=== PATIENT | female | born 1965 | race Caucasian/White ===

== ENCOUNTER 2023-02-27 08:34 | Inpatient (IN) | payer MEDICARE, SELFPAY ==
[2023-02-27] VITALS (10 sets, daily range): BP systolic 130–165; BP diastolic 58–70; PULSE 86–92; RESP 16–24; TEMP 36–36.9; O2SAT 91–95; BMI 36.5; BMI 35.4
[2023-02-27 09:41] LABS: Absolute Neutrophil Count 6.5 X10^3/uL (2.0-7.7); Basophil# 0.05 X10^3/uL; Basophil% 0.5 % (0-1); Eosinophil# 0.28 X10^3/uL; Hematocrit 35.9 % (37-47); Hemoglobin 10.6 g/dL (12.0-15.0); Lymphocyte % 19.5 % (19-41); Mean Corp Hgb Conc 29.5 g/dL (32-36); Mean Corpuscular Hgb 23.2 pg (27.0-32.0); Mean Corpuscular Volume 78.6 fL (81-99); Mean Platelet Vol. 8.8 fl (6.2-12.0); Monocyte# 0.58 X10^3/uL; Monocyte% 6.3 % (0-10); NRBC Flagged by Analyzer 0 % (0-5); Neutrophil # 6.46 X10^3/uL (2.7-7.7); Neutrophil % 69.9 % (47-70); Platelet Count 200 K/mm3 (150-450); RBC Distribution Width CV 18.2 % (11.6-14.6); RBC Distribution Width SD 51.6 fl (35.1-43.9); Red Blood Count 4.57 M/mm3 (4.2-5.4); White Blood Count 9.2 K/mm3 (4.4-11.0)
--- NOTE | 2023-02-27 09:45 | EKG12_ITS ---
Test Reason : SOB Blood Pressure : / mmHG Vent. Rate : 082 BPM Atrial Rate : 082 BPM P-R Int : 244 ms QRS Dur : 116 ms QT Int : 386 ms P-R-T Axes : 020 -53 067 degrees QTc Int : 450 ms Sinus rhythm with 1st degree A-V block Left axis deviation Left ventricular hypertrophy with QRS widening Anteroseptal infarct , age undetermined Abnormal ECG Confirmed by ARELY RAZO, CASSIE ([id number]), photo editor KAYLA MORSE ([id number]) on 02/28/2023 8:52:01 AM Referred By: SANDEEP Confirmed By:CASSIE MCGEE MD
[2023-02-27 09:51] LABS: Anion Gap 5 (5-15); BUN 34 mg/dL (7-18); BUN/Creat Ratio 27.4 RATIO (10-20); Calcium,Total 8.8 mg/dL (8.5-10.1); Chloride 110 mmol/L (98-107); Creatinine, Serum 1.24 mg/dL (0.55-1.02); EST Glomerular Filtration Rate 47 mL/min (>60); Est Glom Filt Rate - Afr Amer 57 mL/min (>60); Estimated Creatinine Clearance 40.41 ml/min; Glucose 142 mg/dL (74-106); Potassium 4.6 mmol/L (3.5-5.1); Sodium Level 138 mmol/L (136-145)
--- NOTE | 2023-02-27 10:07 | RAD_ITS ---
STUDY: X-RAY CHEST REASON FOR EXAM: Female, 57 years old. SOB TECHNIQUE: Single AP portable view of the chest. COMPARISON: None. FINDINGS: EKG electrodes are seen. Vascular congestion and CHF. Blunting of both cosmetic angles. There is borderline cardiomegaly. Normal mediastinum and steffanie. Normal visualized pulmonary arteries. Normal visualized aortic arch and descending thoracic aorta. There are diffuse degenerative changes of the visualized thoracic spine. Normal visualized ribs, clavicles, and shoulders. There is no demonstrated abnormality of the visualized soft tissue structures of the upper abdomen. RAD/Chest 1 View (Portable) IMPRESSION: Vascular congestion and CHF. Electronically Signed: Gomez Cross MD at 10:44 EDT ,
--- NOTE | 2023-02-27 10:42 | ED.VIS.DYS ---
HPI History of Present Illness Chief Complaint: Shortness of Breath Narrative Narrative: 57-year-old female presenting with shortness of breath. He states that started about a week and a half ago and has been progressively worse. She reports a history of COPD. She states he was last on antibiotics and steroids. No recent hospitalizations. She has some mild right-sided chest pain which is intermittent and does not radiate. She has not a fever but does feel like she has chills. Patient does report a cough. No production of sputum. Dyspnea is worse with exertion. [facility] Medical History Benign colon polyp COPD (chronic obstructive pulmonary disease) Diabetes Allergy/AdvReac Type Severity Reaction Status Date / Time tramadol Allergy Itching Verified 02/27/23 08:35 Family History (Updated 02/27/23 @ 12:[address] Santos Garcia MD) Other Heart disease Surgical History History of History of hernia repair Social History Smoking Status: Current every day smoker tobacco type: cigarettes ROS ROS ED Constitutional Constitutional ED: Reports chills; Denies fever(s) or sweats Eyes Eyes: Denies blurry vision or change in vision ENT ENT ED: Denies ear pain or sore throat Cardiovascular Cardiovascular: Denies chest pain, palpitations or racing heartbeat Respiratory/Chest Respiratory/Chest: Reports cough, dyspnea and dyspnea on exertion; Denies sputum Gastrointestinal Gastrointestinal: Denies abdominal pain, constipation, diarrhea, nausea or vomiting Genitourinary Genitourinary ED: Denies dysuria, hematuria or urinary frequency Musculoskeletal Musculoskeletal: Denies arthralgias, myalgias or neck pain Integumentary Denies abscess, Abrasions or rash Neurologic Neurologic: Denies headache(s), paresthesias or weakness Psychiatric Psychiatric: Denies anxiety, depression, suicidal ideation or suicidal thoughts Endocrine Endocrinology: Denies polydipsia or polyuria EXAM Physical Exam Const Vital Signs: 02/27/23 08:36 02/27/23 09:25 02/27/23 09:25 Temperature 96.8 F L Temperature Source Temporal Pulse Rate 92 Respiratory Rate 16 24 H Respiratory Effort Respiratory Depth Respiratory Pattern Blood Pressure 165/58 H Blood Pressure Mean 93 Pulse Ox 93 91 91 Oxygen Delivery Method Nasal Cannula Nasal Cannula Nasal Cannula Oxygen Flow Rate (L/min) 3 3 3 02/27/23 09:26 02/27/23 10:21 02/27/23 11:13 Temperature Temperature Source Pulse Rate 86 Respiratory Rate 24 H Respiratory Effort Short of Breath Respiratory Depth Shallow Respiratory Pattern Tachypnea Blood Pressure 142/70 H Blood Pressure Mean 94 Pulse Ox 94 92 Oxygen Delivery Method Nasal Cannula Nasal Cannula Nasal Cannula Oxygen Flow Rate (L/min) 3 4 4 02/27/23 11:15 Temperature Temperature Source Pulse Rate 89 Respiratory Rate 17 Respiratory Effort Respiratory Depth Respiratory Pattern Normal Blood Pressure Blood Pressure Mean Pulse Ox Oxygen Delivery Method Oxygen Flow Rate (L/min) Positive well nourished General Appearance ED: NAD; Negative for pallor HEENT Reports dry mucous membranes Mouth ED: Yes dry mucous membranes Mouth: dry mucous membranes Eyes PERRL and EOMs intact bilaterally Neck no lymphadenopathy and supple Resp Resp Narrative: Slightly tachypneic. Patient speaking in full sentences. Noted to be on 5 L of oxygen. No accessory muscle use. Auscultation: wheezes expiratory wheezes Cardio regular rate and regular rhythm GI non-tender Neuro oriented x3 and CN's II-XII intact bilaterally Sensorium / Orientation: alert Motor Exam: strength 5/5 throughout Psych mental status grossly normal Skin no wounds General Skin Exam: Negative for jaundice or pallor MDM MDM MDM Narrative Medical decision making narrative: 57-year-old for ED presenting with shortness of breath. She states that she been this way for about a week and a half. Worsening over the last few days. Patient noted to be requiring liters nasal cannula when usually she uses 3. Patient is wheezing on exam she is given breathing treatments Solu-Medrol. Differential includes COPD exacerbation, pneumonia, viral syndrome, ACS, CHF, PE. CBC to assess white blood cell count, hemoglobin, platelets, differential. BMP to assess renal function, electrolytes. D-dimer presents for PE. LFTs to assess for liver abnormality. CBC shows a hemoglobin of 10.6 with no comparison. Patient denies black or bloody stools. BMP shows normal electrolytes. Creatinine is 1.24, BUN 34, GFR 47. No comparison lab work. BNP is negative. The patient's chest x-ray does look like pulmonary vascular congestion although she has a normal BNP and she is wheezing on exam I suspect she has a COPD exacerbation. She is hypoxic at 87% on reevaluation on 5 L just sitting in the bed. Will need to be admitted. I spoke with the hospitalist for admission. Impression: 1. COPD exacerbation 2. Hypoxic respiratory failure Lab Data Attestation: I reviewed the patient's lab results. Labs: Laboratory Results - last 24 hr 02/27/23 02/27/23 02/27/23 09:30 09:30 09:30 WBC 9.2 RBC 4.57 Hgb 10.6 L Hct 35.9 L MCV 78.6 L MCH 23.2 L MCHC 29.5 L RDW Std Deviation 51.6 H RDW Coeff of Alejandra 18.2 H Plt Count 200 MPV 8.8 Immature Gran % (Auto) 0.800 Neut % (Auto) 69.9 Lymph % (Auto) 19.5 [place] % (Auto) 6.3 Eos % (Auto) 3.0 Baso % (Auto) 0.5 Absolute Neuts (auto) 6.5 Absolute Lymphs (auto) 1.80 Nucleated RBC % 0 D-Dimer Quant (PE/DVT) < 0.27 L Sodium 138 Potassium 4.6 Chloride 110 H Carbon Dioxide 23.0 Anion Gap 5 BUN 34 H Creatinine 1.24 H Estim Creat Clear Calc 40.41 Est GFR (MDRD) Af Amer 57 L Est GFR (MDRD) Non-Af 47 L BUN/Creatinine Ratio 27.4 H Glucose 142 H Calcium 8.8 Total Bilirubin Direct Bilirubin AST ALT Alkaline Phosphatase Troponin I High Sens B-Natriuretic Peptide Total Protein Albumin Globulin 02/27/23 02/27/23 09:30 09:30 WBC RBC Hgb Hct MCV MCH MCHC RDW Std Deviation RDW Coeff of Alejandra Plt Count MPV Immature Gran % (Auto) Neut % (Auto) Lymph % (Auto) [place] % (Auto) Eos % (Auto) Baso % (Auto) Absolute Neuts (auto) Absolute Lymphs (auto) Nucleated RBC % D-Dimer Quant (PE/DVT) Sodium Potassium Chloride Carbon Dioxide Anion Gap BUN Creatinine Estim Creat Clear Calc Est GFR (MDRD) Af Amer Est GFR (MDRD) Non-Af BUN/Creatinine Ratio Glucose Calcium Total Bilirubin 0.40 Direct Bilirubin 0.10 AST 8 L ALT 13 Alkaline Phosphatase 95 Troponin I High Sens 8 B-Natriuretic Peptide 31.6 Total Protein 7.3 Albumin 3.1 L Globulin 4.2 Radiography Diagnostic Testing: Clinical Impression(s) from Imaging Studies Chest X-Ray 02/27/23 10:07 IMPRESSION: Vascular congestion and CHF. Electronically Signed: Gomez Cross MD at 10:44 EDT Reading Location ID and State: [facility] / [place] , Service support , Discharge Plan Triage Chief Complaint: Shortness of Breath ED Provider: Lj Patel Dx/Rx/DC Orders Primary Care Provider: Angelina Nieves NP Referrals: Angelina Nieves NP, [employer] DESIGNER[employer] [Primary Care Provider] -
[2023-02-27 10:56] LABS: D-Dimer Quantitative (DVT/PE) < 0.27 FEU/ug/m (0.27-0.49)
[2023-02-27 11:02] LABS: AST(SGOT) 8 U/L (15-37); Alanine Aminotransfer ALT/SGPT 13 U/L (13-56); Albumin, Serum 3.1 g/dL (3.2-5.0); Alkaline Phosphatase 95 U/L (45-117); Globulin 4.2 g/dL (2.2-4.2); Protein, Total 7.3 g/dL (6.4-8.2); Troponin-I HS 8 pg/mL (3.0-54.0)
[2023-02-27 11:08] LABS: BNP,B-Type NATRIURETIC PEPTIDE 31.6 pg/mL (0-100)
[2023-02-27] MEDS: Albuterol 2.5 MG/3 ML VIAL.NEB. INHALATION (11:12)
[2023-02-27] MEDS: Ipratropium/Albuterol Sulfate 3 ML AMPUL.NEB INHALATION ×2 (11:12→19:39)
[2023-02-27] MEDS: MethylPREDNISolone 125 MG/2 ML Vial IV (11:12)
--- NOTE | 2023-02-27 12:47 | HP.PCM.HOS_ITS ---
HPI - General General Date of Admission: 02/27/23 HPI Narrative HAYDEN RANDLE, is a 57 F who presents to the hospital with a week and a half worth of shortness of breath. She is chronically hypoxic requiring 3 L of oxygen due to COPD. She has noticed over the last month that she has had difficulty lying flat and she feels more short of breath when she tries to. 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 She denies any recent illnesses, she denies any fevers or chills and no one sick at home. She does have a cough though it is only productive of clear sputum. [facility] Medical History Benign colon polyp COPD (chronic obstructive pulmonary disease) Diabetes Home Medications albuterol sulfate 90 mcg/actuation aerosol inhaler (Ventolin HFA) 2 inh inhalation Q4H PRN SOB 02/27/23 [History Last Taken 02/26/23] amlodipine 2.5 mg tablet 2.5 mg PO DAILY BP 02/27/23 [History Last Taken 02/27/23] celecoxib 100 mg capsule 100 mg PO BID PRN Pain 02/27/23 [History Last Taken 02/27/23] empagliflozin 25 mg tablet (Jardiance) 25 mg PO DAILY DM 02/27/23 [History Last Taken 02/27/23] escitalopram oxalate 10 mg tablet 10 mg PO DAILY DEPRESSION 02/27/23 [History Last Taken 02/27/23] ezetimibe 10 mg tablet 10 mg PO DAILY CHOLESTEROL 02/27/23 [History Last Taken 02/27/23] furosemide 40 mg tablet 40 mg PO DAILY FLUID 02/27/23 [History Last Taken 02/26/23] glimepiride 1 mg tablet 1 mg PO DAILY DM 02/27/23 [History Last Taken 02/27/23] hydrocodone-acetaminophen 5-325mg 5mg-325mg 1 tab PO DAILY PRN Severe Pain (Scale Score 7-10) 02/27/23 [History Last Taken 02/26/23] insulin NPH isoph U-100 human 100 unit/mL subcutaneous suspension (Novolin N NPH U-100 Insulin isophane) 20 unit subcut DAILY DM 02/27/23 [History Last Taken 02/26/23] insulin detemir U-100 100 unit/mL subcutaneous solution (Levemir U-100 Insulin) 20 unit subcut QHS DM 02/27/23 [History Last Taken 02/26/23] potassium chloride 20 mEq tablet,extended release 20 meq PO DAILY SUPPLEMENT 02/27/23 [History Last Taken 02/27/23] pregabalin 100 mg capsule 100 mg PO TID PRN Pain 02/27/23 [History Last Taken 02/27/23] umeclidinium 62.5 mcg/actuation blister powder for inhalation (Incruse Ellipta) 1 inh inhalation DAILY COPD 02/27/23 [History Last Taken 02/27/23] Allergy/AdvReac Type Severity Reaction Status Date / Time tramadol Allergy Itching Verified 02/27/23 08:35 Family History (Updated 02/27/23 @ 14:[address] Santos Garcia MD) Other COPD (chronic obstructive pulmonary disease) Cancer Surgical History History of History of hernia repair Social History Smoking Status: Current every day smoker tobacco type: cigarettes ROS Constitutional Constitutional: Denies chills, fatigue, fever(s) or malaise Eyes Eyes: Denies blurry vision ENT HEENT: Denies headache(s) or nasal discharge Cardiovascular Cardiovascular: Reports orthopnea; Denies chest pain, dyspnea on exertion or syncope Respiratory/Chest Respiratory/Chest: Reports shortness of breath at rest; Denies cough or shortness of breath with exertion Gastrointestinal Gastrointestinal: Denies constipation, diarrhea, nausea or vomiting Genitourinary Genitourinary: Denies dysuria Neurologic Neurologic: Denies focal weakness, numbness or tremor(s) Psychiatric Psychiatric: Denies anxiety or depression Vital Signs Vital Signs Vital Signs: 02/27/23 08:36 02/27/23 09:25 02/27/23 09:25 Temperature 96.8 F L Temperature Source Temporal Pulse Rate 92 Respiratory Rate 16 24 H Respiratory Effort Respiratory Depth Respiratory Pattern Blood Pressure 165/58 H Blood Pressure Mean 93 Pulse Ox 93 91 91 Oxygen Delivery Method Nasal Cannula Nasal Cannula Nasal Cannula Oxygen Flow Rate (L/min) 3 3 3 02/27/23 09:26 02/27/23 10:21 02/27/23 11:13 Temperature Temperature Source Pulse Rate 86 Respiratory Rate 24 H Respiratory Effort Short of Breath Respiratory Depth Shallow Respiratory Pattern Tachypnea Blood Pressure 142/70 H Blood Pressure Mean 94 Pulse Ox 94 92 Oxygen Delivery Method Nasal Cannula Nasal Cannula Nasal Cannula Oxygen Flow Rate (L/min) 3 4 4 02/27/23 11:15 Temperature Temperature Source Pulse Rate 89 Respiratory Rate 17 Respiratory Effort Respiratory Depth Respiratory Pattern Normal Blood Pressure Blood Pressure Mean Pulse Ox Oxygen Delivery Method Oxygen Flow Rate (L/min) Weight Weight: 206 lb Body Mass Index (BMI) 36.5 Physical Exam Narrative General: Alert, Oriented x3, Cooperative, mild respiratory distress HEENT: Atraumatic, PERRLA, EOMI, Normocephalic Oral: Moist Mucosa Neck: Supple, No JVD Lungs: Diminished, Normal air movement, No rhonchi, wheeze, No rales, tachypnea Cardiovascular: Regular rate, Regular Rhythm, Normal S1, Normal S2, No murmurs Abdomen: Soft, Non Tender, Non-Distended, No Hepato-splenomegaly Extremities: No edema, Capillary Refill Less than 3 Seconds Skin: No rashes, No breakdown Musculoskeletal: No Tenderness to Palpation of Joints or Extremities Neurological: Motor Exam 5/5 strength throughout, Sensory exam intact to light touch and pain Psych/Mental Status: Normal Affect, Appropriate Results Lab / Micro Data Result Diagrams: 02/27/23 09:30 02/27/23 09:30 Labs: Laboratory Results - last 24 hr 02/27/23 09:30: WBC 9.2, RBC 4.57, Hgb 10.6 L, Hct 35.9 L, MCV 78.6 L, MCH 23.2 L, MCHC 29.5 L, RDW Std Deviation 51.6 H, RDW Coeff of Alejandra 18.2 H, Plt Count 200, MPV 8.8, Immature Gran % (Auto) 0.800, Neut % (Auto) 69.9, Lymph % (Auto) 19.5, [place] % (Auto) 6.3, Eos % (Auto) 3.0, Baso % (Auto) 0.5, Absolute Neuts (auto) 6.5, Absolute Lymphs (auto) 1.80, Nucleated RBC % 0 02/27/23 09:30: Sodium 138, Potassium 4.6, Chloride 110 H, Carbon Dioxide 23.0, Anion Gap 5, BUN 34 H, Creatinine 1.24 H, Estim Creat Clear Calc 40.41, Est GFR (MDRD) Af Amer 57 L, Est GFR (MDRD) Non-Af 47 L, BUN/Creatinine Ratio 27.4 H, Glucose 142 H, Calcium 8.8 02/27/23 09:30: D-Dimer Quant (PE/DVT) < 0.27 L 02/27/23 09:30: Total Bilirubin 0.40, Direct Bilirubin 0.10, AST 8 L, ALT 13, Alkaline Phosphatase 95, Troponin I High Sens 8, Total Protein 7.3, Albumin 3.1 L, Globulin 4.2 02/27/23 09:30: B-Natriuretic Peptide 31.6 Micro: Microbiology 02/27/23 09:30 Nasal Secretion SARS-CoV-2 Antigen (Rapid) - Final Radiology Impression Chest X-Ray 02/27/23 10:07 IMPRESSION: Vascular congestion and CHF. Electronically Signed: Gomez Cross MD at 10:44 EDT , Assessment & Plan Assessment/Plan (1) Acute and chronic respiratory failure with hypoxia: (2) COPD exacerbation: PLAN: Plan 1. Acute on chronic hypoxic respiratory failure secondary to COPD exacerbation ? We will continue with steroids and breathing treatments ? Her BNP is normal in the setting of an elevated creatinine however she does have signs and symptoms of heart failure so we will obtain an echo to rule this out ? We will recommend outpatient follow-up with a tag machine operator when she is ready to discharge ? We will try to attempt a sputum culture 2. HTN/HLD ? Blood pressure stable, will continue with her home medications including Norvasc ? Continue with Lasix and will obtain an echo ? Continue with Zetia 3. DM2 ? We will hold her home medications ? We will place her on sliding scale insulin with Accu-Cheks ACHS ? Continue with long-acting insulin ? We will make adjustments as necessary DVT: Heparin 75 minutes was spent on direct patient care as well as chart review and collaboration with colleagues Charges/Coding Visit Charges Inpatient E&M: 53917 Init Hosp L3
[2023-02-27] MEDS: Insulin Lispro 100 UNIT/ML INSULN.PEN SC ×2 (16:37→21:50)
[2023-02-27] MEDS: Methylprednisolone Sod Succ 40 MG/ML VIAL IV ×2 (16:37→21:47)
[2023-02-27] MEDS: Heparin Injection (Vial) 5,000 UNIT/ML VIAL 5000 UNIT SC ×2 (16:37→21:47)
[2023-02-27 16:50] LABS: Bedside Glucose 270 mg/dL (74-106)
[2023-02-27] MEDS: Celecoxib 100 MG Capsule PO (20:26)
[2023-02-27] MEDS: Insulin Glargine-YFGN 100 UNIT/ML Pen 20 UNIT SC (21:49)
[2023-02-27 22:15] LABS: Bedside Glucose 360 mg/dL (74-106)
[2023-02-28 03:00] VITALS: BP 127/69; PULSE 81; RESP 18; TEMP 36.6; O2SAT 97
[2023-02-28 05:14] LABS: Absolute Neutrophil Count 7.2 X10^3/uL (2.0-7.7); Basophil# 0.02 X10^3/uL; Basophil% 0.2 % (0-1); Hematocrit 38.4 % (37-47); Hemoglobin 11.1 g/dL (12.0-15.0); Lymphocyte % 8.5 % (19-41); Mean Corp Hgb Conc 28.9 g/dL (32-36); Mean Corpuscular Hgb 22.7 pg (27.0-32.0); Mean Corpuscular Volume 78.7 fL (81-99); Mean Platelet Vol. 9.2 fl (6.2-12.0); Monocyte# 0.23 X10^3/uL; Monocyte% 2.8 % (0-10); NRBC Flagged by Analyzer 0 % (0-5); Neutrophil # 7.18 X10^3/uL (2.7-7.7); Neutrophil % 86.7 % (47-70); Platelet Count 222 K/mm3 (150-450); RBC Distribution Width SD 50.7 fl (35.1-43.9); Red Blood Count 4.88 M/mm3 (4.2-5.4); White Blood Count 8.3 K/mm3 (4.4-11.0)
[2023-02-28 05:39] LABS: Anion Gap 7 (5-15); BUN 45 mg/dL (7-18); Calcium,Total 9.5 mg/dL (8.5-10.1); Chloride 106 mmol/L (98-107); Creatinine, Serum 1.25 mg/dL (0.55-1.02); EST Glomerular Filtration Rate 47 mL/min (>60); Est Glom Filt Rate - Afr Amer 56 mL/min (>60); Estimated Creatinine Clearance 40.09 ml/min; Glucose 297 mg/dL (74-106); Potassium 5.4 mmol/L (3.5-5.1); Sodium Level 136 mmol/L (136-145)
[2023-02-28] MEDS: Insulin Lispro 100 UNIT/ML INSULN.PEN SC (05:58)
[2023-02-28] MEDS: Methylprednisolone Sod Succ 40 MG/ML VIAL IV (06:01)
[2023-02-28] MEDS: Heparin Injection (Vial) 5,000 UNIT/ML VIAL 5000 UNIT SC (06:01)
[2023-02-28 06:04] VITALS: PULSE 80; RESP 18; O2SAT 97
[2023-02-28 06:46] LABS: Bedside Glucose 264 mg/dL (74-106)
[2023-02-28 06:58] VITALS: PULSE 81; RESP 19; O2SAT 97
[2023-02-28] MEDS: Ipratropium/Albuterol Sulfate 3 ML AMPUL.NEB INHALATION (06:58)
[2023-02-28 07:06] VITALS: O2SAT 91; O2SAT 96
--- NOTE | 2023-02-28 08:41 | NURSING ---
Patient IV removed and left AMA. Explained risks of AMA pt states she is not staying any longer does not want a echo that is ordered. Made3 Dr. Garcia is aware.
--- NOTE | 2023-02-28 09:04 | PCM.DC.SUM ---
Providers Date of Admission: 02/27/23 Primary Care Physician: ARMINDA ManciaC Reason For Visit: COPD EXACERBATION Diagnosis Discharge Diagnosis (1) Acute and chronic respiratory failure with hypoxia: Status: Chronic Code(s): J96.21 - Acute and chronic respiratory failure with hypoxia (2) COPD exacerbation: Status: Chronic Code(s): J44.1 - Chronic obstructive pulmonary disease with (acute) exacerbation Medications at Discharge Home Medications albuterol sulfate 90 mcg/actuation aerosol inhaler (Ventolin HFA) 2 inh inhalation Q4H PRN SOB 02/27/23 amlodipine 2.5 mg tablet 2.5 mg PO DAILY BP 02/27/23 celecoxib 100 mg capsule 100 mg PO BID PRN Pain 02/27/23 empagliflozin 25 mg tablet (Jardiance) 25 mg PO DAILY DM 02/27/23 escitalopram oxalate 10 mg tablet 10 mg PO DAILY DEPRESSION 02/27/23 ezetimibe 10 mg tablet 10 mg PO DAILY CHOLESTEROL 02/27/23 furosemide 40 mg tablet 40 mg PO DAILY FLUID 02/27/23 glimepiride 1 mg tablet 1 mg PO DAILY DM 02/27/23 hydrocodone-acetaminophen 5-325mg 5mg-325mg 1 tab PO DAILY PRN Severe Pain (Scale Score 7-10) 02/27/23 insulin NPH isoph U-100 human 100 unit/mL subcutaneous suspension (Novolin N NPH U-100 Insulin isophane) 20 unit subcut DAILY DM 02/27/23 insulin detemir U-100 100 unit/mL subcutaneous solution (Levemir U-100 Insulin) 20 unit subcut QHS DM 02/27/23 potassium chloride 20 mEq tablet,extended release 20 meq PO DAILY SUPPLEMENT 02/27/23 pregabalin 100 mg capsule 100 mg PO TID PRN Pain 02/27/23 umeclidinium 62.5 mcg/actuation blister powder for inhalation (Incruse Ellipta) 1 inh inhalation DAILY COPD 02/27/23 prednisone 20 mg tablet 40 mg PO DAILY 7 days #14 tabs 02/28/23 Hospital Course Operations None Procedures None Summary of Care Provided Minutes Spent on Discharge: 36 Hospital Course: Per HPI: HAYDEN RANDLE, is a 57 F who presents to the hospital with a week and a half worth of shortness of breath.? She is chronically hypoxic requiring 3 L of oxygen due to COPD.? She has noticed over the last month that she has had difficulty lying flat and she feels more short of breath when she tries to.? She does not have a director transition but has been on oxygen for her COPD from his last 10 years.? She denies any recent illnesses, she denies any fevers or chills and no one sick at home.? She does have a cough though it is only productive of clear sputum. Hospital Course: 1.? Acute on chronic hypoxic respiratory failure secondary to COPD exacerbation/tobacco abuse ? We will continue with steroids and breathing treatments ? She does continue to smoke about a pack and 1.5 pack per day discussed cessation ? Her BNP is normal in the setting of an elevated creatinine however she does have signs and symptoms of heart failure so we will obtain an echo to rule this out ? We will recommend outpatient follow-up with a director transition when she is ready to discharge ? We will try to attempt a sputum culture ? She refused to stay, head and neck since conversation with her about why I want to get the echo but she demanded to leave AMA risk and benefits were discussed. We will provide her with a prednisone prescription and I did request that she follow-up with her PCP as an outpatient and to obtain a referral for pulmonology 2.? HTN/HLD ? Blood pressure stable, will continue with her home medications including Norvasc ? Continue with Lasix and will obtain an echo ? Continue with Zetia 3.? DM2 ? We will hold her home medications ? We will place her on sliding scale insulin with Accu-Cheks ACHS ? Continue with long-acting insulin ? We will make adjustments as necessary Physical Exam Narrative General: Alert, Oriented x3, Cooperative, mild respiratory distress HEENT: Atraumatic, PERRLA, EOMI, Normocephalic Oral: Moist Mucosa Neck: Supple, No JVD Lungs: Diminished, Normal air movement, No rhonchi, wheeze, No rales, tachypnea Cardiovascular: Regular rate, Regular Rhythm, Normal S1, Normal S2, No murmurs Abdomen: Soft, Non Tender, Non-Distended, No Hepato-splenomegaly Extremities: No edema, Capillary Refill Less than 3 Seconds Skin: No rashes, No breakdown Musculoskeletal: No Tenderness to Palpation of Joints or Extremities Neurological: Motor Exam 5/5 strength throughout, Sensory exam intact to light touch and pain Psych/Mental Status: Normal Affect, Appropriate Weight / BMI Weight Weight: 199 lb 11.2 oz Body Mass Index (BMI) 35.4 ABG / Lab / Microbiology Data Result Diagrams: 02/28/23 04:50 02/28/23 04:50 Laboratory: Laboratory Results - last 24 hr 02/27/23 09:30: WBC 9.2, RBC 4.57, Hgb 10.6 L, Hct 35.9 L, MCV 78.6 L, MCH 23.2 L, MCHC 29.5 L, RDW Std Deviation 51.6 H, RDW Coeff of Alejandra 18.2 H, Plt Count 200, MPV 8.8, Immature Gran % (Auto) 0.800, Neut % (Auto) 69.9, Lymph % (Auto) 19.5, [place] % (Auto) 6.3, Eos % (Auto) 3.0, Baso % (Auto) 0.5, Absolute Neuts (auto) 6.5, Absolute Lymphs (auto) 1.80, Nucleated RBC % 0 02/27/23 09:30: Sodium 138, Potassium 4.6, Chloride 110 H, Carbon Dioxide 23.0, Anion Gap 5, BUN 34 H, Creatinine 1.24 H, Estim Creat Clear Calc 40.41, Est GFR (MDRD) Af Amer 57 L, Est GFR (MDRD) Non-Af 47 L, BUN/Creatinine Ratio 27.4 H, Glucose 142 H, Calcium 8.8 02/27/23 09:30: D-Dimer Quant (PE/DVT) < 0.27 L 02/27/23 09:30: Total Bilirubin 0.40, Direct Bilirubin 0.10, AST 8 L, ALT 13, Alkaline Phosphatase 95, Troponin I High Sens 8, Total Protein 7.3, Albumin 3.1 L, Globulin 4.2 02/27/23 09:30: B-Natriuretic Peptide 31.6 02/27/23 16:31: POC Glucose 270 H 02/27/23 21:46: POC Glucose 360 H 02/28/23 04:50: WBC 8.3, RBC 4.88, Hgb 11.1 L, Hct 38.4, MCV 78.7 L, MCH 22.7 L, MCHC 28.9 L, RDW Std Deviation 50.7 H, RDW Coeff of Alejandra 18.0 H, Plt Count 222, MPV 9.2, Immature Gran % (Auto) 1.800 H, Neut % (Auto) 86.7 H, Lymph % (Auto) 8.5 L, [place] % (Auto) 2.8, Eos % (Auto) 0.0, Baso % (Auto) 0.2, Absolute Neuts (auto) 7.2, Absolute Lymphs (auto) 0.70 L, Nucleated RBC % 0 02/28/23 04:50: Sodium 136, Potassium 5.4 H, Chloride 106, Carbon Dioxide 23.0, Anion Gap 7, BUN 45 H, Creatinine 1.25 H, Estim Creat Clear Calc 40.09, Est GFR (MDRD) Af Amer 56 L, Est GFR (MDRD) Non-Af 47 L, BUN/Creatinine Ratio 36.0 H, Glucose 297 H, Calcium 9.5 02/28/23 05:57: POC Glucose 264 H Microbiology: Microbiology 02/27/23 09:30 Nasal Secretion SARS-CoV-2 Antigen (Rapid) - Final Radiography Diagnostic Testing: Radiology Impression Chest X-Ray 02/27/23 10:07 IMPRESSION: Vascular congestion and CHF. Electronically Signed: Gomez Cross MD at 10:44 EDT , Meaningful Use Info Meaningful Use Diagnoses (Choose all that apply): None applicable Discharge Plan Admission Admit Date/Time: 02/27/23 12:43 Attending Provider: Santos Garcia Primary Care Provider: Angelina Nieves NP Discharge Orders/Prescriptions Prescriptions: New prednisone 20 mg tablet 40 mg PO DAILY 7 Days Qty: 14 0RF No Action furosemide 40 mg tablet 40 mg PO DAILY Label Comments: TAKE 1 TABLET BY MOUTH EVERY DAY hydrocodone-acetaminophen 5-325 mg tablet 1 tab PO DAILY PRN (Reason: Severe Pain (Scale Score 7-10)) amlodipine 2.5 mg tablet 2.5 mg PO DAILY glimepiride 1 mg tablet 1 mg PO DAILY Label Comments: TAKE 1 TABLET BY MOUTH EVERY DAY Novolin N NPH U-100 Insulin 100 unit/mL suspension 20 unit SUBCUT DAILY Label Comments: INJECT 20 UNIT UNDER SKIN DAILY albuterol sulfate [Ventolin HFA] 90 mcg/actuation HFA aerosol inhaler 2 inh INHALATION Q4H PRN (Reason: SOB) celecoxib 100 mg capsule 100 mg PO BID PRN (Reason: Pain) Label Comments: TAKE 1 CAPSULE BY MOUTH 2 TIMES DAILY NEEDED FOR JOINT PAIN escitalopram oxalate 10 mg tablet 10 mg PO DAILY Label Comments: TAKE 1 TABLET BY MOUTH EVERY DAY ezetimibe 10 mg tablet 10 mg PO DAILY pregabalin 100 mg capsule 100 mg PO TID PRN (Reason: Pain) Label Comments: TAKE 1 (ONE) CAPSULE BY MOUTH THREE TIMES DAILY, NEEDED FOR MUSCLE PAIN, NEUROPATHY/NERVE PAIN Levemir U-100 Insulin 100 unit/mL solution 20 unit SUBCUT QHS Label Comments: INJECT 20 UNIT UNDER SKIN AT BEDTIME potassium chloride 20 mEq tablet extended release 20 meq PO DAILY Label Comments: TAKE 1 TABLET BY MOUTH EVERY DAY Incruse Ellipta 62.5 mcg/actuation blister with device 1 inh INHALATION DAILY Label Comments: INHALE 1 PUFF DAILY Jardiance 25 mg tablet 25 mg PO DAILY Label Comments: TAKE 1 TABLET BY MOUTH EVERY DAY Referrals / Follow Up: Angelina Nieves NP, [employer] [Primary Care Provider] - Disposition Disposition (needs filled in before D/C Order can be placed): Against Medical Advice Charges/Coding Visit Charges Inpatient E&M: 38402 Disch Hosp >30min
== END 2023-02-28 08:35 | disposition left against medical advice (07) | DRG 190 ==
LOC: ED 13:31 → MS3 13:59
PROVIDERS: Admitting Provider Family Medicine; Emergency Provider Student in an Organized Health Care Education/Training Program; PCP Nurse Practitioner Family; Visit Provider Family Medicine
DX: J44.1 Chronic obstructive pulmonary disease with (acute) exacerbation (principal); J96.21 Acute and chronic respiratory failure with hypoxia; E11.9 Type 2 diabetes mellitus without complications; Z79.4 Long term (current) use of insulin; I10 Essential (primary) hypertension; E78.5 Hyperlipidemia, unspecified; F17.210 Nicotine dependence, cigarettes, uncomplicated; Z53.29 Procedure and treatment not carried out because of patient's decision for other reasons; Z20.822 Contact with and (suspected) exposure to COVID-19; Z79.84 Long term (current) use of oral hypoglycemic drugs; Z79.899 Other long term (current) drug therapy
CPT/HCPCS: 36415; 71045; 80048; 80076; 82962; 83880; 84484; 85025; 85379; 87070; 87205; 87811; 93005; 94640; 94668; 94760; 99252; 99284; 99406; A4216; G0463